=== PATIENT | male | born 1970 | race Caucasian/White ===

== ENCOUNTER 2020-05-05 09:57 | Emergency (ER) | payer OTHER ==
[~2020-05-05] VITALS: Ht 180.3 cm; Wt 77.1 kg
[2020-05-05] MEDS ORDERED: FLEXERIL PO (11:22)
[2020-05-05 11:36] VITALS: BP 116/79
== END 2020-05-05 11:37 | disposition home or self-care (01) ==
LOC: M.ERS 09:57
DX: M25.552 Pain in left hip (principal); F17.210 Nicotine dependence, cigarettes, uncomplicated; Z88.8 Allergy status to other drugs, medicaments and biological substances

== ENCOUNTER 2020-07-01 10:34 | Emergency (ER) | payer OTHER ==
[~2020-07-01] VITALS: Ht 182.9 cm; Wt 81.7 kg
[~2020-07-01 10:34] MED LIST: FLEXERIL PO
[2020-07-01 10:56] LABS: URINE BLOOD NEGATIVE (Negative); URINE CLARITY CLEAR; URINE COLOR YELLOW; URINE GLUCOSE-RANDOM NEGATIVE (Negative); URINE KETONES NEGATIVE (Negative); URINE LEUKOCYTES-REFLEX NEGATIVE (Negative); URINE NITRITE-REFLEX NEGATIVE (Negative); URINE PROTEIN TRACE (Negative); URINE SPECIFIC GRAVITY >= 1.030 (1.005-1.030); URINE UROBILINOGEN 0.2 E.U./dl (0.2-1.0)
[2020-07-01 10:58] LABS: ICTOTEST (BILI CONFIRMATORY) Positive (Negative); URINE BILIRUBIN 1+ (Negative)
[2020-07-01 11:03] LABS: AMP/METHAMP POSITIVE (Negative); BARBITURATES Negative (Negative); BENZODIAZEPINES Negative (Negative); COCAINE Negative (Negative); METHADONE Negative (Negative); OPIATES Negative (Negative); PCP Negative (Negative); THC POSITIVE (Negative)
[2020-07-01 11:05] LABS: ABSOLUTE BASOPHILS 0.1 thou/uL (0.0-0.2); ABSOLUTE EOSINOPHILS 0.6 thou/uL (0.0-0.7); ABSOLUTE LYMPHOCYTES 2.1 thou/uL (0.8-5.3); ABSOLUTE MONOCYTES 0.6 thou/uL (0.0-1.2); ABSOLUTE NEUTROPHILS 5.6 thou/uL (1.6-8.1); BASOPHILS 1.2 %; EOSINOPHILS 6.2 %; HEMATOCRIT 42.6 % (42.0-52.0); HEMOGLOBIN 14.1 gm/dL (14.0-18.0); LYMPHOCYTES 23.6 %; MCH 25.5 pg (26.0-34.0); MCV 77.1 fL (80.0-100.0); MONOCYTES 6.8 %; MPV 8.3 fl. (7.2-11.1); NUCLEATED RBCS 0 /100WBC; PLATELET COUNT* 304 thou/uL (150-400); POLYS 62.2 %; RBC 5.52 mil/uL (4.50-6.00); RDW-CV 15.1 % (10.5-14.5)
[2020-07-01 11:23] LABS: ALCOHOL < 10 mg/dL (<10); CALCIUM 9.1 mg/dL (8.5-10.1); CREATININE 1.3 mg/dL (0.6-1.3); POTASSIUM 3.5 mmol/L (3.5-5.1)
[2020-07-01 11:25] LABS: ACETAMINOPHEN < 2 ug/mL (10-30); SALICYLATE < 2.8 mg/dL (2.8-20.0)
[2020-07-01 11:27] LABS: ALBUMIN 4.6 g/dL (3.4-5.0); TOTAL PROTEIN 8.5 g/dL (6.4-8.2)
[2020-07-01] MEDS ORDERED: BACTRIM DS TAB1 EAC1 PO ×2 (11:35→11:40)
[2020-07-01 12:00] VITALS: BP 122/72
== END 2020-07-01 12:00 | disposition home or self-care (01) ==
LOC: M.ERS 10:34
PROVIDERS: Emergency Medicine Emergency Medical Services
DX: F15.10 Other stimulant abuse, uncomplicated (principal); L73.9 Follicular disorder, unspecified; F17.210 Nicotine dependence, cigarettes, uncomplicated; Z88.8 Allergy status to other drugs, medicaments and biological substances